=== PATIENT | male | born 1955 | race Caucasian/White ===

== ENCOUNTER 2023-09-20 15:37 | Outpatient (REF) | payer MEDICARE, SELFPAY ==
--- NOTE | ~2023-09-20 | XR_ITS ---
EXAMINATION: XR CHEST 2 VIEW CLINICAL INFORMATION: Cough COMPARISON: None TECHNIQUE: PA and lateral views of the chest obtained. FINDINGS: Patchy and linear opacities are evident in the right lower, seen better on the lateral radiograph. There are no pleural effusions. The cardiomediastinal silhouette is normal. XR/XR chest 2V IMPRESSION: Right lower lobe infiltrate or atelectasis. Follow-up is recommended to confirm clearing.
== END 2023-09-20 15:38 | disposition home or self-care (01) ==
LOC: HO.XRAY 15:37
PROVIDERS: Visit Provider Nurse Practitioner Primary Care
DX: R05.1 Acute cough (principal); I10 Essential (primary) hypertension
CPT/HCPCS: 71046